=== PATIENT | male | born 1965 | race Caucasian/White ===

== ENCOUNTER 2021-10-07 07:42 | Emergency (ER) | payer MEDICAID ==
[~2021-10-07] VITALS: Ht 188 cm; Wt 127.0 kg
[~2021-10-07 07:42] MED LIST: ARIPIPRAZOLE; BUPR75TA4; CARI250T; HUMILIN; PAR20T; PIOG30TA28; ZOLP5TAB
[2021-10-07 10:00] VITALS: BP 180/74
== END 2021-10-07 14:39 | disposition home or self-care (01) ==
LOC: EDBD 07:42 → ER 07:42
DX: R04.0 Epistaxis (principal); I11.0 Hypertensive heart disease with heart failure; I50.9 Heart failure, unspecified; E11.9 Type 2 diabetes mellitus without complications; E78.5 Hyperlipidemia, unspecified; J44.9 Chronic obstructive pulmonary disease, unspecified; F17.210 Nicotine dependence, cigarettes, uncomplicated; Z79.899 Other long term (current) drug therapy

== ENCOUNTER 2022-03-26 09:25 | Inpatient (IN) | payer MEDICAID ==
[~2022-03-26] VITALS: Ht 188 cm; Wt 172.0 kg
[2022-03-26 10:41] LABS: Basophils # (auto) 0.1 10 ^3/uL (0-0.2); Basophils % (auto) 0.7 % (0.0-2.0); Eosinophils # (auto) 0 10 ^3/uL (0-0.8); Hematocrit 43.1 % (41.0-53.0); Hemoglobin 13.8 g/dL (13.5-17.5); Lymphocytes # (auto) 0.7 10 ^3/uL (0.4-5.4); Lymphocytes % (auto) 3.1 % (10.0-50.0); Mean Corpuscular Volume 93.7 fL (80.0-100.0); Monocytes # (auto) 1.8 10 ^3/uL (0-1.3); Monocytes % (auto) 8.2 % (0.0-12.0); Red Cell Distribution Width 16.6 % (11.8-14.3); White Blood Cell 21.6 10^3/uL (4.4-10.8)
[2022-03-26 11:05] LABS: Albumin 2.8 g/dL (3.4-5.0); Calcium 7.6 mg/dL (8.5-10.1); Magnesium 1.6 mg/dL (1.6-2.6); Potassium 3.9 mmol/L (3.5-5.1)
[2022-03-26 11:08] LABS: Bilirubin, Total 0.7 mg/dL (0.2-1.0); Total Protein 6.2 g/dL (6.4-8.2)
[2022-03-26] MEDS ORDERED: levoFLOXacin 500MG 100 ML IV ONE (11:30)
[2022-03-26] MEDS ORDERED: PIPERACILLIN-TAZOB 3.375GM 100 ML IV ONE (11:30)
[2022-03-26] MEDS ORDERED: SODIUM CHLORIDE 0.9% 500 ML IV ONE ×2 (11:30→15:45)
[2022-03-26 11:58] LABS: Magnesium 1.4 mg/dL (1.6-2.6)
[2022-03-26] MEDS ORDERED: SODIUM CHLORIDE 0.9% 1,000 ML IV ONE (12:15)
[2022-03-26] MEDS ORDERED: MORPHINE SULFATE INJ 2 MG/ml SYRG IV PRN ×2 (14:45)
[2022-03-26] MEDS ORDERED: ONDANSETRON HCL 4 MG/2 ML VIAL IV PRN (14:45)
[2022-03-26] MEDS ORDERED: TEMAZEPAM 15 MG CAP PO PRN (14:45)
[2022-03-26] MEDS ORDERED: DOCUSATE SOD 100 MG CAP PO PRN (14:45)
[2022-03-26] MEDS ORDERED: DEXTROSE (50%) 50ML SYRG IV PRN (14:45)
[2022-03-26] MEDS ORDERED: NITROGLYCERIN 0.4 MG SL TAB SL PRN (14:45)
[2022-03-26] MEDS ORDERED: ACETAMINOPHEN 325 MG TAB PO PRN (14:45)
[2022-03-26] MEDS ORDERED: VANCOMYCIN PER PHARMACY 0 MG IV SCH (14:45)
[2022-03-26] MEDS: PIPERACILLIN-TAZOB 3.375GM 100 ML IV SCH (15:23)
[2022-03-26] MEDS: SODIUM CHLORIDE 0.9% 1,000 ML IV SCH (15:23)
[2022-03-26] MEDS ORDERED: VANCOMYCIN 1GM/250ML 250 ML IV SCH ×2 (16:00→17:00)
[2022-03-26 16:37] LABS: Triglycerides 178 mg/dL (< 150)
[2022-03-26 16:40] LABS: Cholesterol 84 mg/dL (< 200); HDL Cholesterol 38 mg/dL (40-59); LDL Cholesterol 27 mg/dL (< 100)
[2022-03-26] MEDS ORDERED: VANCOMYCIN 1GM/250ML 250 ML IV ONE (17:00)
[2022-03-26] MEDS: ACCU-CHEK COMFORT CURVE STRIP VI SCH ×2 (17:33→22:23)
[2022-03-26] MEDS: InsuLIN REG 1unit/0.01ml Soln (100units/ml) SC SCH (17:41)
[2022-03-26] MEDS ORDERED: InsuLIN REG 1unit/0.01ml Soln (100units/ml) SC SCH (22:00)
[2022-03-26 23:03] LABS: Urine Bacteria MOD /hpf (None Seen); Urine Blood TRACE /uL (Negative); Urine Hyaline Cast FEW /lpf (0 - 2); Urine Mucus FEW (None Seen); Urine Specific Gravity 1.019 (1.001-1.035); Urine WBC 15 /hpf (0 - 3)
[2022-03-27] MEDS: PIPERACILLIN-TAZOB 3.375GM 100 ML IV SCH ×2 (01:19→06:45)
[2022-03-27 06:06] LABS: Albumin 2.7 g/dL (3.4-5.0); BUN/Creatinine Ratio 18.1; Calcium 7.5 mg/dL (8.5-10.1); Phosphorus 3.8 mg/dL (2.5-4.90)
[2022-03-27] MEDS: InsuLIN REG 1unit/0.01ml Soln (100units/ml) SC SCH ×3 (06:53→17:43)
[2022-03-27] MEDS: ACCU-CHEK COMFORT CURVE STRIP VI SCH ×4 (06:53→21:21)
[2022-03-27] MEDS: VANCOMYCIN 1GM/250ML 250 ML IV SCH ×2 (10:45→21:25)
[2022-03-27] MEDS: SODIUM CHLORIDE 0.9% 1,000 ML IV SCH (13:16)
[2022-03-27 14:00] LABS: Protein, Urine 47.8 mg/dL (0.0-11.9)
[2022-03-27 15:40] VITALS: BP 142/90
[2022-03-27] MEDS ORDERED: PARO10TA93 PO (16:06)
[2022-03-27] MEDS ORDERED: HYDR50TA15 PO (16:06)
[2022-03-27] MEDS ORDERED: LEVO-28 PO (16:06)
[2022-03-27] MEDS ORDERED: LOSA-69 PO (16:06)
[2022-03-27] MEDS ORDERED: ACET250T3 PO (16:06)
[2022-03-27] MEDS ORDERED: AMIO200T4 PO (16:06)
[2022-03-27] MEDS ORDERED: FINE10TA PO (16:06)
[2022-03-27] MEDS ORDERED: FERR325T20 PO (16:06)
[2022-03-27] MEDS ORDERED: SIMV-13 PO (16:06)
[2022-03-27] MEDS ORDERED: MET25T PO (16:06)
[2022-03-27] MEDS ORDERED: GABA300C10 PO (16:06)
[2022-03-27] MEDS ORDERED: PRE5T PO (16:06)
[2022-03-27] MEDS ORDERED: ARIP10TA29 PO (16:06)
[2022-03-27] MEDS ORDERED: CEPH500C PO (16:06)
[2022-03-27 16:36] VITALS: BP 134/60
[2022-03-27] MEDS ORDERED: TAMSULOSIN HYDROCHLORIDE 0.4 MG CAP PO SCH (18:00)
[2022-03-27] MEDS ORDERED: INSULIN LANTUS (GLARGINE) 1 /0.01ml (100units/ml) SC ONE (18:00)
[2022-03-27 20:00] VITALS: BP 120/61
[2022-03-27] MEDS: INSULIN LANTUS (GLARGINE) 1 /0.01ml (100units/ml) SC SCH (21:22)
[2022-03-27 22:00] VITALS: BP 120/61
[2022-03-28] MEDS: SODIUM CHLORIDE 0.9% 1,000 ML IV SCH ×3 (00:05→17:49)
[2022-03-28] MEDS: HYDROcodone-ACET 5/325MG TAB PO PRN ×3 (01:19→16:08)
[2022-03-28 05:00] VITALS: BP 147/73
[2022-03-28 05:23] LABS: Basophils # (auto) 0.1 10 ^3/uL (0-0.2); Basophils % (auto) 0.7 % (0.0-2.0); Eosinophils # (auto) 0.1 10 ^3/uL (0-0.8); Eosinophils % (auto) 0.7 % (0.0-7.0); Hematocrit 35.9 % (41.0-53.0); Hemoglobin 11.6 g/dL (13.5-17.5); Lymphocytes # (auto) 0.5 10 ^3/uL (0.4-5.4); Mean Corpuscular Hgb Conc. 32.5 g/dL (32.0-36.0); Mean Corpuscular Volume 95.5 fL (80.0-100.0); Monocytes # (auto) 1.1 10 ^3/uL (0-1.3); Monocytes % (auto) 9.2 % (0.0-12.0); Neutrophils # (auto) 10.1 10 ^3/uL (1.6-8.6); Neutrophils % (auto) 85.4 % (37.0-80.0); Red Blood Cells 3.76 10^6/uL (4.5-5.90); Red Cell Distribution Width 16.6 % (11.8-14.3); White Blood Cell 11.8 10^3/uL (4.4-10.8)
[2022-03-28 05:41] LABS: Calcium 7.2 mg/dL (8.5-10.1); Potassium 3.8 mmol/L (3.5-5.1)
[2022-03-28 05:44] LABS: BUN/Creatinine Ratio 21.2
[2022-03-28] MEDS: ACCU-CHEK COMFORT CURVE STRIP VI SCH ×3 (06:14→17:41)
[2022-03-28] MEDS: INSULIN LANTUS (GLARGINE) 1 /0.01ml (100units/ml) SC SCH (06:21)
[2022-03-28] MEDS: InsuLIN REG 1unit/0.01ml Soln (100units/ml) SC SCH ×3 (06:24→17:42)
[2022-03-28] MEDS: ALBUTEROL SULF 2.5 MG/0.5ML(0.5%) NEB SOLN NEB PRN ×2 (07:58→14:40)
[2022-03-28 09:00] VITALS: BP 137/73
[2022-03-28] MEDS ORDERED: cefTRIAXone 1GM/50ML D5W 50 ML IV SCH (09:00)
[2022-03-28] MEDS ORDERED: ENOXAPARIN SOD 30 MG/0.3 ML SYRINGE SC SCH (10:00)
[2022-03-28] MEDS: VANCOMYCIN 1GM/250ML 250 ML IV SCH (10:25)
[2022-03-28] MEDS: INSULIN 70/30 1unit/0.01ml Susp (100units/ml) SC SCH ×2 (11:18→17:00)
[2022-03-28 13:00] VITALS: BP 110/66
[2022-03-28] MEDS ORDERED: CIPR-173 PO (14:39)
[2022-03-28 17:00] VITALS: BP 120/65
[2022-03-28] MEDS ORDERED: ALBUTEROL SULF 2.5 MG/0.5ML(0.5%) NEB SOLN NEB SCH (18:00)
== END 2022-03-28 18:30 | disposition home health service (06) | DRG 52 ==
LOC: EDBD 09:25 → EDUNIT# 09:25 → ER 09:25 → TELE 14:35 → TELE-WESTW 03-27 14:38
PROVIDERS: ADMIT Family Medicine; ATTEND Hospitalist
PROC: 05HD33Z Insertion of Infusion Device into Right Cephalic Vein, Percutaneous Approach (ICD-10-PCS; principal; 2022-03-26)
PROC: B54MZZA Ultrasonography of Right Upper Extremity Veins, Guidance (ICD-10-PCS; 2022-03-26)
DX: G93.41 Metabolic encephalopathy (principal); L03.115 Cellulitis of right lower limb; N17.9 Acute kidney failure, unspecified; L03.116 Cellulitis of left lower limb; I13.0 Hypertensive heart and chronic kidney disease with heart failure and stage 1 through stage 4 chronic kidney disease, or unspecified chronic kidney disease; E88.09 Other disorders of plasma-protein metabolism, not elsewhere classified; I50.32 Chronic diastolic (congestive) heart failure; E11.22 Type 2 diabetes mellitus with diabetic chronic kidney disease; Z68.43 Body mass index [BMI] 50.0-59.9, adult; N39.0 Urinary tract infection, site not specified; E66.9 Obesity, unspecified; N18.9 Chronic kidney disease, unspecified; I89.0 Lymphedema, not elsewhere classified; E11.65 Type 2 diabetes mellitus with hyperglycemia; Z20.822 Contact with and (suspected) exposure to COVID-19; E66.01 Morbid (severe) obesity due to excess calories; E78.5 Hyperlipidemia, unspecified; F17.210 Nicotine dependence, cigarettes, uncomplicated; J44.9 Chronic obstructive pulmonary disease, unspecified; R74.01 Elevation of levels of liver transaminase levels; R74.8 Abnormal levels of other serum enzymes
CPT/HCPCS: 36415; 70450; 71045; 76775; 78582; 80048; 80053; 80061; 80069; 80202; 80320; 81001; 82306; 82570; 82962; 83036; 83605; 83615; 83735; 83970; 84100; 84156; 84300; 84443; 84484; 85025; 85379; 87040; 87077; 87086; 87088; 87186; 87205; 87426; 92610; 93005; 93306; 94640; 95819; 96361; 96365; 96367; 97163; G0378; J0696; J1815; J1956; J2543

== ENCOUNTER 2022-04-13 20:46 | Inpatient (IN) | payer MEDICAID ==
[~2022-04-13] VITALS: Ht 170.2 cm; Wt 192.8 kg
[~2022-04-13 20:46] MED LIST changes: +ACET250T3 PO; +AMIO200T4 PO; +ARIP10TA29 PO; +CIPR-173 PO; +FERR325T20 PO; +FINE10TA PO; +GABA300C10 PO; +HYDR50TA15 PO; +MET25T PO; +PARO10TA93 PO; +SIMV-13 PO
[2022-04-13] MEDS ORDERED: IPRATROPIUM BROM 0.5 MG/2.5ML INH SOL NEB ONE (21:00)
[2022-04-13] MEDS ORDERED: methylPREDNISolone SOD SUCC 125 MG/2 ML VL IV ONE (21:00)
[2022-04-13] MEDS ORDERED: ALBUTEROL SULF 2.5 MG/0.5ML(0.5%) NEB SOLN NEB ONE (21:00)
[2022-04-13 22:11] LABS: Basophils # (auto) 0.1 10 ^3/uL (0-0.2); Basophils % (auto) 0.8 % (0.0-2.0); Eosinophils # (auto) 0 10 ^3/uL (0-0.8); Eosinophils % (auto) 0.1 % (0.0-7.0); Hematocrit 41.6 % (41.0-53.0); Hemoglobin 13.4 g/dL (13.5-17.5); Lymphocytes # (auto) 0.3 10 ^3/uL (0.4-5.4); Lymphocytes % (auto) 2.5 % (10.0-50.0); Mean Corpuscular Hemoglobin 30.6 pg (28.0-32.0); Mean Corpuscular Hgb Conc. 32.3 g/dL (32.0-36.0); Mean Corpuscular Volume 94.7 fL (80.0-100.0); Monocytes # (auto) 1.6 10 ^3/uL (0-1.3); Monocytes % (auto) 11.7 % (0.0-12.0); Neutrophils # (auto) 11.7 10 ^3/uL (1.6-8.6); Neutrophils % (auto) 84.9 % (37.0-80.0); Red Cell Distribution Width 16.4 % (11.8-14.3); White Blood Cell 13.8 10^3/uL (4.4-10.8)
[2022-04-13 22:28] LABS: INR 1.24 (0.9-1.15); Partial Thromboplastin Time 31.6 sec (24.6-33.4)
[2022-04-13 22:35] LABS: Albumin 2.7 g/dL (3.4-5.0); BUN/Creatinine Ratio 17.9; Calcium 8.2 mg/dL (8.5-10.1); Magnesium 2.4 mg/dL (1.6-2.6); Potassium 4.6 mmol/L (3.5-5.1)
[2022-04-13 22:37] LABS: Bilirubin, Total 0.8 mg/dL (0.2-1.0); Total Protein 7.1 g/dL (6.4-8.2)
[2022-04-13] MEDS ORDERED: cefTRIAXone 1GM/50ML D5W 50 ML IV ONE (22:45)
[2022-04-13] MEDS ORDERED: AZITHROMYCIN 500MG/ 250ML 250 ML IV ONE (22:45)
[2022-04-14 00:20] VITALS: BP 110/59
[2022-04-14 00:30] LABS: Urine Bacteria NONE SEEN /hpf (None Seen); Urine Blood Negative /uL (Negative); Urine Hyaline Cast MOD /lpf (0 - 2); Urine Mucus FEW (None Seen); Urine Specific Gravity 1.023 (1.001-1.035); Urine WBC 22 /hpf (0 - 3)
[2022-04-14] MEDS ORDERED: DEXTROSE (50%) 50ML SYRG IV PRN (00:45)
[2022-04-14] MEDS ORDERED: ACETAMINOPHEN 325 MG TAB PO PRN (00:45)
[2022-04-14] MEDS ORDERED: MORPHINE SULFATE INJ 2 MG/ml SYRG IV PRN (00:45)
[2022-04-14] MEDS ORDERED: NITROGLYCERIN 0.4 MG SL TAB SL PRN (00:45)
[2022-04-14] MEDS ORDERED: HYDROcodone-ACET 5/325MG TAB PO PRN (00:45)
[2022-04-14] MEDS ORDERED: ONDANSETRON HCL 4 MG/2 ML VIAL IV PRN (00:45)
[2022-04-14 01:10] VITALS: BP 110/59
[2022-04-14] MEDS: ACCU-CHEK COMFORT CURVE STRIP VI SCH ×4 (06:38→22:00)
[2022-04-14] MEDS: InsuLIN REG 1unit/0.01ml Soln (100units/ml) SC SCH ×4 (06:40→22:41)
[2022-04-14] MEDS: BUDESONIDE (INHALATION) 0.5 MG/2 ML NEB NEB SCH ×2 (07:07→18:03)
[2022-04-14] MEDS: ALBUTEROL SULF 2.5 MG/0.5ML(0.5%) NEB SOLN NEB SCH ×4 (07:07→23:54)
[2022-04-14] MEDS: IPRATROPIUM BROM 0.5 MG/2.5ML INH SOL NEB SCH ×4 (07:07→23:54)
[2022-04-14] MEDS: LEVOTHYROXINE SODIUM 25 MCG TAB PO SCH (08:52)
[2022-04-14] MEDS: cefTRIAXone 1GM/50ML D5W 50 ML IV SCH (09:21)
[2022-04-14] MEDS: PANTOPRAZOLE 40 MG TAB PO SCH (10:34)
[2022-04-14] MEDS: METOPROLOL TARTRATE 25 MG TAB PO SCH ×3 (10:34→22:37)
[2022-04-14] MEDS: AMIODARONE HCL 200 MG TAB PO SCH ×2 (10:34→22:37)
[2022-04-14] MEDS: AZITHROMYCIN 500MG/ 250ML 250 ML IV SCH (10:35)
[2022-04-14] MEDS ORDERED: ZOLPIDEM TARTRATE 5 MG TAB PO PRN (10:45)
[2022-04-14] MEDS: GABAPENTIN 100 MG CAP PO SCH ×3 (12:59→22:37)
[2022-04-14 22:10] VITALS: BP 107/55
[2022-04-14] MEDS: ATORVASTATIN 20 MG TAB PO SCH (22:37)
[2022-04-14] MEDS: INSULIN LANTUS (GLARGINE) 1 /0.01ml (100units/ml) SC SCH (22:38)
[2022-04-15] VITALS (26 sets, daily range): BP systolic 105–152; BP diastolic 53–78
[2022-04-15] MEDS: GABAPENTIN 100 MG CAP PO SCH ×4 (06:00→22:20)
[2022-04-15] MEDS: ALBUTEROL SULF 2.5 MG/0.5ML(0.5%) NEB SOLN NEB SCH ×3 (06:03→18:24)
[2022-04-15] MEDS: IPRATROPIUM BROM 0.5 MG/2.5ML INH SOL NEB SCH ×3 (06:03→18:24)
[2022-04-15] MEDS: BUDESONIDE (INHALATION) 0.5 MG/2 ML NEB NEB SCH ×2 (06:43→18:24)
[2022-04-15] MEDS: ACCU-CHEK COMFORT CURVE STRIP VI SCH ×4 (07:00→22:20)
[2022-04-15] MEDS: LEVOTHYROXINE SODIUM 25 MCG TAB PO SCH (07:00)
[2022-04-15] MEDS: InsuLIN REG 1unit/0.01ml Soln (100units/ml) SC SCH ×3 (07:28→17:51)
[2022-04-15] MEDS: INSULIN LANTUS (GLARGINE) 1 /0.01ml (100units/ml) SC SCH ×2 (07:28→22:23)
[2022-04-15 09:06] LABS: Basophils # (auto) 0.1 10 ^3/uL (0-0.2); Eosinophils # (auto) 0.1 10 ^3/uL (0-0.8); Eosinophils % (auto) 0.8 % (0.0-7.0); Hematocrit 39.9 % (41.0-53.0); Lymphocytes # (auto) 0.3 10 ^3/uL (0.4-5.4); Lymphocytes % (auto) 3.5 % (10.0-50.0); Mean Corpuscular Hemoglobin 31.2 pg (28.0-32.0); Mean Corpuscular Hgb Conc. 32.5 g/dL (32.0-36.0); Mean Corpuscular Volume 95.8 fL (80.0-100.0); Monocytes # (auto) 0.9 10 ^3/uL (0-1.3); Monocytes % (auto) 10.2 % (0.0-12.0); Neutrophils # (auto) 7.7 10 ^3/uL (1.6-8.6); Neutrophils % (auto) 84.5 % (37.0-80.0); Nucleated Red Blood Cells % 0.1 %; Red Blood Cells 4.16 10^6/uL (4.5-5.90); Red Cell Distribution Width 16.2 % (11.8-14.3); White Blood Cell 9.1 10^3/uL (4.4-10.8)
[2022-04-15] MEDS: cefTRIAXone 1GM/50ML D5W 50 ML IV SCH (09:17)
[2022-04-15 09:35] LABS: Albumin 2.9 g/dL (3.4-5.0); BUN/Creatinine Ratio 25.5; Bilirubin, Total 0.6 mg/dL (0.2-1.0); Calcium 8.2 mg/dL (8.5-10.1); Potassium 5.1 mmol/L (3.5-5.1); Total Protein 6.6 g/dL (6.4-8.2)
[2022-04-15] MEDS ORDERED: buPROPion HCL 75 MG TAB PO SCH (10:00)
[2022-04-15] MEDS: AZITHROMYCIN 500MG/ 250ML 250 ML IV SCH (10:07)
[2022-04-15] MEDS: AMIODARONE HCL 200 MG TAB PO SCH ×2 (10:07→22:20)
[2022-04-15] MEDS: PANTOPRAZOLE 40 MG TAB PO SCH (10:08)
[2022-04-15] MEDS: METOPROLOL TARTRATE 25 MG TAB PO SCH ×2 (10:08→22:20)
[2022-04-15] MEDS: PARoxetine 20 MG TAB PO SCH (10:09)
[2022-04-15] MEDS ORDERED: INSULIN LANTUS (GLARGINE) 1 /0.01ml (100units/ml) SC ONE (11:15)
[2022-04-15] MEDS ORDERED: DEXTROSE (50%) 50ML SYRG IV PRN (11:15)
[2022-04-15] MEDS ORDERED: BUMETANIDE 2.5mg/10ml (0.25 mg/ml) INJ IV ONE (11:45)
[2022-04-15] MEDS ORDERED: FUROSEMIDE 20 MG/2 ML VIAL IV ONE (19:30)
[2022-04-15] MEDS ORDERED: InsuLIN REG 1unit/0.01ml Soln (100units/ml) SC SCH (22:00)
[2022-04-15] MEDS: ATORVASTATIN 20 MG TAB PO SCH (22:23)
[2022-04-16] VITALS (20 sets, daily range): BP systolic 113–161; BP diastolic 59–71
[2022-04-16 05:11] LABS: Basophils # (auto) 0.1 10 ^3/uL (0-0.2); Basophils % (auto) 1.3 % (0.0-2.0); Eosinophils # (auto) 0.1 10 ^3/uL (0-0.8); Eosinophils % (auto) 1.4 % (0.0-7.0); Hematocrit 39.6 % (41.0-53.0); Hemoglobin 12.7 g/dL (13.5-17.5); Lymphocytes # (auto) 0.3 10 ^3/uL (0.4-5.4); Lymphocytes % (auto) 3.1 % (10.0-50.0); Mean Corpuscular Hemoglobin 30.4 pg (28.0-32.0); Mean Corpuscular Hgb Conc. 32.1 g/dL (32.0-36.0); Mean Corpuscular Volume 94.6 fL (80.0-100.0); Monocytes # (auto) 0.9 10 ^3/uL (0-1.3); Monocytes % (auto) 9.5 % (0.0-12.0); Neutrophils # (auto) 7.8 10 ^3/uL (1.6-8.6); Neutrophils % (auto) 84.7 % (37.0-80.0); Red Blood Cells 4.18 10^6/uL (4.5-5.90); Red Cell Distribution Width 16.2 % (11.8-14.3); White Blood Cell 9.2 10^3/uL (4.4-10.8)
[2022-04-16 05:28] LABS: Albumin 2.7 g/dL (3.4-5.0); BUN/Creatinine Ratio 27.9; Bilirubin, Total 0.4 mg/dL (0.2-1.0); Calcium 8.2 mg/dL (8.5-10.1); Potassium 4.9 mmol/L (3.5-5.1); Total Protein 7.1 g/dL (6.4-8.2)
[2022-04-16] MEDS: INSULIN LANTUS (GLARGINE) 1 /0.01ml (100units/ml) SC SCH ×2 (05:56→23:00)
[2022-04-16] MEDS: LEVOTHYROXINE SODIUM 25 MCG TAB PO SCH (05:58)
[2022-04-16] MEDS: InsuLIN REG 1unit/0.01ml Soln (100units/ml) SC SCH ×3 (05:58→18:10)
[2022-04-16] MEDS: GABAPENTIN 100 MG CAP PO SCH ×4 (05:58→22:12)
[2022-04-16] MEDS: BUDESONIDE (INHALATION) 0.5 MG/2 ML NEB NEB SCH ×2 (06:06→19:55)
[2022-04-16] MEDS: ALBUTEROL SULF 2.5 MG/0.5ML(0.5%) NEB SOLN NEB SCH ×3 (06:06→19:54)
[2022-04-16] MEDS: IPRATROPIUM BROM 0.5 MG/2.5ML INH SOL NEB SCH ×3 (06:06→19:55)
[2022-04-16] MEDS: ACCU-CHEK COMFORT CURVE STRIP VI SCH ×3 (06:13→18:01)
[2022-04-16] MEDS: cefTRIAXone 1GM/50ML D5W 50 ML IV SCH (09:00)
[2022-04-16] MEDS: PANTOPRAZOLE 40 MG TAB PO SCH (10:00)
[2022-04-16] MEDS: AZITHROMYCIN 500MG/ 250ML 250 ML IV SCH (10:00)
[2022-04-16] MEDS: METOPROLOL TARTRATE 25 MG TAB PO SCH ×2 (10:00→22:12)
[2022-04-16] MEDS: ENOXAPARIN SOD 30 MG/0.3 ML SYRINGE SC SCH (10:00)
[2022-04-16] MEDS: AMIODARONE HCL 200 MG TAB PO SCH ×2 (10:00→22:11)
[2022-04-16] MEDS: PARoxetine 20 MG TAB PO SCH (10:00)
[2022-04-16] MEDS ORDERED: FUROSEMIDE 20 MG/2 ML VIAL IV SCH (10:00)
[2022-04-16 12:31] LABS: Alcohol, Urine < 3.0 mg/dL (0-10); Amphetamine Screen, Urine NEGATIVE (NEGATIVE); Barbiturate Scree,Urine POSITIVE (NEGATIVE); Benzodiazephine Screen, Urine NEGATIVE (NEGATIVE); Cannabinoid Screen, Urine NEGATIVE (NEGATIVE); Cocaine Screen, Urine NEGATIVE (NEGATIVE); Opiate Scree,Urine NEGATIVE (NEGATIVE); Phencyclidine Screen, Urine NEGATIVE (NEGATIVE)
[2022-04-16] MEDS ORDERED: NALOXONE HCL 0.4 MG/ML VIAL IV ONE (12:45)
[2022-04-16] MEDS: FUROSEMIDE 20 MG/2 ML VIAL IV SCH ×2 (13:15→22:10)
[2022-04-16] MEDS ORDERED: DEXTROSE (50%) 50ML SYRG IV PRN (15:45)
[2022-04-16] MEDS: ATORVASTATIN 20 MG TAB PO SCH (22:11)
[2022-04-17] VITALS (19 sets, daily range): BP systolic 129–166; BP diastolic 53–78
[2022-04-17] MEDS: ACCU-CHEK COMFORT CURVE STRIP VI SCH ×5 (06:00→23:40)
[2022-04-17] MEDS: InsuLIN REG 1unit/0.01ml Soln (100units/ml) SC SCH ×4 (06:00→23:57)
[2022-04-17 06:28] LABS: Basophils # (auto) 0.1 10 ^3/uL (0-0.2); Basophils % (auto) 0.8 % (0.0-2.0); Eosinophils # (auto) 0.1 10 ^3/uL (0-0.8); Eosinophils % (auto) 1.8 % (0.0-7.0); Hematocrit 38.5 % (41.0-53.0); Hemoglobin 12.6 g/dL (13.5-17.5); Lymphocytes # (auto) 0.2 10 ^3/uL (0.4-5.4); Lymphocytes % (auto) 3.1 % (10.0-50.0); Mean Corpuscular Hemoglobin 30.8 pg (28.0-32.0); Mean Corpuscular Hgb Conc. 32.7 g/dL (32.0-36.0); Mean Corpuscular Volume 94.4 fL (80.0-100.0); Monocytes # (auto) 0.8 10 ^3/uL (0-1.3); Neutrophils # (auto) 6.6 10 ^3/uL (1.6-8.6); Neutrophils % (auto) 84.3 % (37.0-80.0); Nucleated Red Blood Cells % 0.1 %; Red Blood Cells 4.08 10^6/uL (4.5-5.90); Red Cell Distribution Width 15.7 % (11.8-14.3); White Blood Cell 7.8 10^3/uL (4.4-10.8)
[2022-04-17] MEDS: IPRATROPIUM BROM 0.5 MG/2.5ML INH SOL NEB SCH ×3 (06:32→19:25)
[2022-04-17] MEDS: BUDESONIDE (INHALATION) 0.5 MG/2 ML NEB NEB SCH ×2 (06:32→22:13)
[2022-04-17] MEDS: ALBUTEROL SULF 2.5 MG/0.5ML(0.5%) NEB SOLN NEB SCH ×3 (06:32→19:26)
[2022-04-17] MEDS: GABAPENTIN 100 MG CAP PO SCH ×4 (06:44→21:12)
[2022-04-17] MEDS: LEVOTHYROXINE SODIUM 25 MCG TAB PO SCH (06:44)
[2022-04-17 06:51] LABS: Albumin 2.8 g/dL (3.4-5.0); Calcium 8.4 mg/dL (8.5-10.1); Potassium 4.8 mmol/L (3.5-5.1)
[2022-04-17 06:53] LABS: BUN/Creatinine Ratio 34.6
[2022-04-17] MEDS: INSULIN LANTUS (GLARGINE) 1 /0.01ml (100units/ml) SC SCH ×2 (06:54→23:11)
[2022-04-17 06:55] LABS: Bilirubin, Total 0.4 mg/dL (0.2-1.0); Total Protein 6.6 g/dL (6.4-8.2)
[2022-04-17] MEDS: cefTRIAXone 1GM/50ML D5W 50 ML IV SCH (09:00)
[2022-04-17] MEDS: ENOXAPARIN SOD 30 MG/0.3 ML SYRINGE SC SCH (10:00)
[2022-04-17] MEDS: FUROSEMIDE 20 MG/2 ML VIAL IV SCH ×2 (10:00→21:11)
[2022-04-17] MEDS: METOPROLOL TARTRATE 25 MG TAB PO SCH ×2 (10:00→21:12)
[2022-04-17] MEDS: PANTOPRAZOLE 40 MG TAB PO SCH (10:00)
[2022-04-17] MEDS: PARoxetine 20 MG TAB PO SCH (10:00)
[2022-04-17] MEDS: AZITHROMYCIN 500MG/ 250ML 250 ML IV SCH (10:00)
[2022-04-17] MEDS: AMIODARONE HCL 200 MG TAB PO SCH ×2 (10:00→21:11)
[2022-04-17] MEDS: ATORVASTATIN 20 MG TAB PO SCH (21:12)
[2022-04-18] VITALS (19 sets, daily range): BP systolic 110–172; BP diastolic 49–77
[2022-04-18 05:33] LABS: Basophils # (auto) 0.1 10 ^3/uL (0-0.2); Basophils % (auto) 1.3 % (0.0-2.0); Eosinophils # (auto) 0.1 10 ^3/uL (0-0.8); Eosinophils % (auto) 1.7 % (0.0-7.0); Hematocrit 37.6 % (41.0-53.0); Hemoglobin 12.3 g/dL (13.5-17.5); Lymphocytes # (auto) 0.2 10 ^3/uL (0.4-5.4); Lymphocytes % (auto) 3.8 % (10.0-50.0); Mean Corpuscular Hemoglobin 30.6 pg (28.0-32.0); Mean Corpuscular Hgb Conc. 32.7 g/dL (32.0-36.0); Mean Corpuscular Volume 93.5 fL (80.0-100.0); Monocytes # (auto) 0.7 10 ^3/uL (0-1.3); Neutrophils # (auto) 4.8 10 ^3/uL (1.6-8.6); Neutrophils % (auto) 81.2 % (37.0-80.0); Red Blood Cells 4.02 10^6/uL (4.5-5.90); Red Cell Distribution Width 15.5 % (11.8-14.3); White Blood Cell 5.9 10^3/uL (4.4-10.8)
[2022-04-18 05:44] LABS: Albumin 2.6 g/dL (3.4-5.0); Calcium 8.5 mg/dL (8.5-10.1); Potassium 4.4 mmol/L (3.5-5.1)
[2022-04-18 05:49] LABS: BUN/Creatinine Ratio 42.4; Bilirubin, Total 0.5 mg/dL (0.2-1.0); Total Protein 6.1 g/dL (6.4-8.2)
[2022-04-18] MEDS: IPRATROPIUM BROM 0.5 MG/2.5ML INH SOL NEB SCH ×3 (06:02→17:53)
[2022-04-18] MEDS: ALBUTEROL SULF 2.5 MG/0.5ML(0.5%) NEB SOLN NEB SCH ×3 (06:02→17:53)
[2022-04-18] MEDS: BUDESONIDE (INHALATION) 0.5 MG/2 ML NEB NEB SCH ×2 (06:03→17:53)
[2022-04-18] MEDS: GABAPENTIN 100 MG CAP PO SCH ×4 (06:43→21:45)
[2022-04-18] MEDS: ACCU-CHEK COMFORT CURVE STRIP VI SCH ×3 (06:44→18:11)
[2022-04-18] MEDS: LEVOTHYROXINE SODIUM 25 MCG TAB PO SCH (06:44)
[2022-04-18] MEDS: INSULIN LANTUS (GLARGINE) 1 /0.01ml (100units/ml) SC SCH (06:44)
[2022-04-18] MEDS: InsuLIN REG 1unit/0.01ml Soln (100units/ml) SC SCH ×3 (06:45→17:38)
[2022-04-18] MEDS: cefTRIAXone 1GM/50ML D5W 50 ML IV SCH (08:56)
[2022-04-18] MEDS: ENOXAPARIN SOD 30 MG/0.3 ML SYRINGE SC SCH (10:37)
[2022-04-18] MEDS: PARoxetine 20 MG TAB PO SCH (10:38)
[2022-04-18] MEDS: FUROSEMIDE 20 MG/2 ML VIAL IV SCH ×2 (10:38→21:44)
[2022-04-18] MEDS: ASPirin 81 mg TAB PO SCH (10:38)
[2022-04-18] MEDS: AMIODARONE HCL 200 MG TAB PO SCH ×2 (10:39→21:45)
[2022-04-18] MEDS: AZITHROMYCIN 500MG/ 250ML 250 ML IV SCH (10:39)
[2022-04-18] MEDS: METOPROLOL TARTRATE 25 MG TAB PO SCH ×2 (10:39→21:45)
[2022-04-18] MEDS: CHLORHEXIDINE 4% TOPICAL soln 118ml TOP SCH (18:00)
[2022-04-18] MEDS ORDERED: PERCOT PO (20:26)
[2022-04-18] MEDS ORDERED: PRAM0.12 PO (20:30)
[2022-04-18] MEDS ORDERED: OXYCODONE W/ ACETAMINOPHEN 5/325MG TABLET PO PRN (20:45)
[2022-04-18] MEDS: ATORVASTATIN 20 MG TAB PO SCH (21:46)
[2022-04-18] MEDS: PRAMIPEXOLE DIHYDROCHLORIDE MO 0.25 MG TAB PO SCH (22:18)
[2022-04-19] MEDS: InsuLIN REG 1unit/0.01ml Soln (100units/ml) SC SCH ×3 (00:48→12:17)
[2022-04-19] MEDS: INSULIN LANTUS (GLARGINE) 1 /0.01ml (100units/ml) SC SCH ×2 (00:48→08:00)
[2022-04-19] MEDS: IPRATROPIUM BROM 0.5 MG/2.5ML INH SOL NEB SCH ×2 (06:03→12:00)
[2022-04-19] MEDS: ALBUTEROL SULF 2.5 MG/0.5ML(0.5%) NEB SOLN NEB SCH ×2 (06:03→12:00)
[2022-04-19] MEDS: BUDESONIDE (INHALATION) 0.5 MG/2 ML NEB NEB SCH (06:04)
[2022-04-19] MEDS: LEVOTHYROXINE SODIUM 25 MCG TAB PO SCH (07:55)
[2022-04-19] MEDS: GABAPENTIN 100 MG CAP PO SCH ×2 (07:55→12:09)
[2022-04-19] MEDS: ACCU-CHEK COMFORT CURVE STRIP VI SCH ×3 (07:55→12:09)
[2022-04-19] MEDS: PRAMIPEXOLE DIHYDROCHLORIDE MO 0.25 MG TAB PO SCH ×2 (07:55→14:00)
[2022-04-19 08:00] VITALS: BP 144/73
[2022-04-19] MEDS: cefTRIAXone 1GM/50ML D5W 50 ML IV SCH (10:20)
[2022-04-19] MEDS: AMIODARONE HCL 200 MG TAB PO SCH (10:21)
[2022-04-19] MEDS: PARoxetine 20 MG TAB PO SCH (10:22)
[2022-04-19] MEDS: METOPROLOL TARTRATE 25 MG TAB PO SCH (10:22)
[2022-04-19] MEDS: ASPirin 81 mg TAB PO SCH (10:24)
[2022-04-19] MEDS: ENOXAPARIN SOD 30 MG/0.3 ML SYRINGE SC SCH (10:24)
[2022-04-19] MEDS: FUROSEMIDE 20 MG/2 ML VIAL IV SCH (10:24)
[2022-04-19] MEDS ORDERED: SPIR25TA8 PO (10:51)
[2022-04-19] MEDS ORDERED: CHLO4LIQ TOP (10:51)
[2022-04-19] MEDS ORDERED: DOXY-332 PO (10:51)
[2022-04-19] MEDS ORDERED: FURO40TA4 PO (10:51)
[2022-04-19] MEDS ORDERED: ALB5IS NEB (10:51)
[2022-04-19] MEDS ORDERED: BUDE0.5S IN (10:54)
[2022-04-19] MEDS: AZITHROMYCIN 500MG/ 250ML 250 ML IV SCH (11:13)
[2022-04-19 11:39] VITALS: BP 159/78
[2022-04-19 12:00] VITALS: BP 145/71
[2022-04-19] MEDS: CHLORHEXIDINE 4% TOPICAL soln 118ml TOP SCH (13:30)
== END 2022-04-19 14:45 | disposition home or self-care (01) | DRG 139 ==
LOC: EDBD 20:46 → EDUNIT# 20:46 → ER 20:47 → TELE 04-14 00:43 → DOU IN ICU 04-15 04:27
PROVIDERS: ADMIT Nurse Practitioner; ATTEND Hospitalist
PROC: 5A09357 Assistance with Respiratory Ventilation, Less than 24 Consecutive Hours, Continuous Positive Airway Pressure (ICD-10-PCS; principal; 2022-04-13)
PROC: 5A09357 Assistance with Respiratory Ventilation, Less than 24 Consecutive Hours, Continuous Positive Airway Pressure (ICD-10-PCS; 2022-04-14)
PROC: 5A09357 Assistance with Respiratory Ventilation, Less than 24 Consecutive Hours, Continuous Positive Airway Pressure (ICD-10-PCS; 2022-04-15)
PROC: 5A09357 Assistance with Respiratory Ventilation, Less than 24 Consecutive Hours, Continuous Positive Airway Pressure (ICD-10-PCS; 2022-04-16)
PROC: 5A09357 Assistance with Respiratory Ventilation, Less than 24 Consecutive Hours, Continuous Positive Airway Pressure (ICD-10-PCS; 2022-04-17)
PROC: 5A09357 Assistance with Respiratory Ventilation, Less than 24 Consecutive Hours, Continuous Positive Airway Pressure (ICD-10-PCS; 2022-04-18)
DX: J18.9 Pneumonia, unspecified organism (principal); J96.21 Acute and chronic respiratory failure with hypoxia; G93.40 Encephalopathy, unspecified; I31.39 Other pericardial effusion (noninflammatory); N17.9 Acute kidney failure, unspecified; J44.0 Chronic obstructive pulmonary disease with (acute) lower respiratory infection; L03.115 Cellulitis of right lower limb; I50.32 Chronic diastolic (congestive) heart failure; I13.0 Hypertensive heart and chronic kidney disease with heart failure and stage 1 through stage 4 chronic kidney disease, or unspecified chronic kidney disease; Z68.44 Body mass index [BMI] 60.0-69.9, adult; L03.116 Cellulitis of left lower limb; J44.1 Chronic obstructive pulmonary disease with (acute) exacerbation; I89.0 Lymphedema, not elsewhere classified; J98.11 Atelectasis; N39.0 Urinary tract infection, site not specified; I48.0 Paroxysmal atrial fibrillation; E66.01 Morbid (severe) obesity due to excess calories; N18.9 Chronic kidney disease, unspecified; E11.22 Type 2 diabetes mellitus with diabetic chronic kidney disease; E11.65 Type 2 diabetes mellitus with hyperglycemia; E78.5 Hyperlipidemia, unspecified; Z20.822 Contact with and (suspected) exposure to COVID-19; F17.210 Nicotine dependence, cigarettes, uncomplicated; I25.10 Atherosclerotic heart disease of native coronary artery without angina pectoris; Z79.899 Other long term (current) drug therapy; Z99.81 Dependence on supplemental oxygen
CPT/HCPCS: 36415; 36600; 70450; 71045; 71250; 80053; 80307; 81001; 82140; 82805; 82962; 83735; 83880; 84484; 85025; 85610; 85730; 87040; 87081; 87426; 93005; 93306; 93970; 94640; 94660; 96365; 96375; 97163; 99291; G0378; J0696; J1815